=== PATIENT | female | born 1990 | race Caucasian/White ===

== ENCOUNTER 2016-08-06 01:50 | Emergency (ER) | payer MEDICAID ==
[~2016-08-06] VITALS: Ht 160 cm; Wt 50.3 kg
[2016-08-06] MEDS ORDERED: IBUPROFEN 200 MG TABLET PO ONE (02:30)
[2016-08-06] MEDS ORDERED: IBUPROFEN 200 MG TABLET ONE (02:35)
[2016-08-06 02:41] LABS: HEMOGLOBIN 14.3 g/dL (11.7-16.4)
[2016-08-06 02:57] LABS: BLOOD UREA NITROGEN 12 mg/dL (7-18)
[2016-08-06 03:32] VITALS: BP 100/58
== END 2016-08-06 03:56 | disposition home or self-care (01) ==
LOC: ED 03:10
DX: S69.91XA Unspecified injury of right wrist, hand and finger(s), initial encounter (principal); R05 Cough; W86.8XXA Exposure to other electric current, initial encounter; Y93.89 Activity, other specified; Y92.89 Other specified places as the place of occurrence of the external cause; Y99.8 Other external cause status
CPT/HCPCS: 36415; 71010; 80048; 82040; 84703; 85025; 93005

== ENCOUNTER 2016-11-03 02:51 | Emergency (ER) | payer MEDICAID ==
[~2016-11-03] VITALS: Ht 160 cm; Wt 51.8 kg
[2016-11-03 02:52] VITALS: BP 104/69
[2016-11-03] MEDS ORDERED: FLUCONAZOLE 100 MG TABLET PO ONE (04:00)
== END 2016-11-03 04:27 | disposition home or self-care (01) ==
LOC: ED 04:21
DX: B37.3 Candidiasis of vulva and vagina (principal)
CPT/HCPCS: 81003; 87210; 87491; 87591; 87808; 99284

== ENCOUNTER 2017-04-27 16:55 | Emergency (ER) | payer SELFPAY ==
[~2017-04-27] VITALS: Ht 160 cm; Wt 51.8 kg
[2017-04-27] MEDS ORDERED: ALBU2.5V11 NEB (17:38)
[2017-04-27 17:48] LABS: MICROSCOPIC NOT IND
[2017-04-27 17:48] LABS: BASOPHILS # (AUTO) 0.05 x10^3/uL (0-0.1); BASOPHILS % (AUTO) 1 % (0-1); EOSINOPHILS # (AUTO) 0.19 x10^3/uL (0-0.4); EOSINOPHILS % (AUTO) 2 % (1-7); LYMPHOCYTES # (AUTO) 2.06 x10^3/uL (1-3.4); LYMPHOCYTES % (AUTO) 22 % (22-44); MD NO; MEAN CORPUSCULAR HGB CONC 33.7 g/dL (32.4-35.8); MEAN CORPUSCULAR VOLUME 97.9 fL (80-100); MEAN PLATELET VOLUME 8.1 fL (7.4-10.4); MONOCYTES % (AUTO) 5 % (2-9); NEUTROPHILS # (AUTO) 6.42 x10^3/uL (1.8-6.8); NEUTROPHILS % (AUTO) 70 % (42-75); PLATELET COUNT 362 x10^3/uL (130-400); RED CELL DISTRIBUTION WIDTH 13.7 % (9.6-15.2)
[2017-04-27 17:49] LABS: CULTURE INDICATED? NO
[2017-04-27 17:58] LABS: ALBUMIN 4.4 g/dL (3.4-5.0); ANION GAP 9 mmol/L (5-15); CALCIUM 8.6 mg/dL (8.5-10.1); CHLORIDE 105 mmol/L (98-107)
[2017-04-27 18:04] LABS: ALANINE AMINOTRANSFERASE 15 U/L (12-78); ALKALINE PHOSPHATASE 61 U/L (45-117); BILIRUBIN,TOTAL 0.5 mg/dL (0.2-1.0); CREATININE 0.87 mg/dL (0.55-1.02); TOTAL PROTEIN 7.8 g/dL (6.4-8.2)
[2017-04-27 18:16] VITALS: BP 105/73
== END 2017-04-27 18:52 | disposition home or self-care (01) ==
LOC: ED 18:43
DX: R10.32 Left lower quadrant pain (principal); R10.31 Right lower quadrant pain; R10.2 Pelvic and perineal pain; R11.2 Nausea with vomiting, unspecified
CPT/HCPCS: 36415; 76830; 80053; 81003; 84703; 85025; 99285

== ENCOUNTER 2017-12-19 21:33 | Emergency (ER) | payer MEDICAID, OTHER ==
[~2017-12-19] VITALS: Ht 165.1 cm; Wt 50.0 kg
[~2017-12-19 21:33] MED LIST: ALBU2.5V11 NEB
[2017-12-19 21:43] VITALS: BP 137/83
== END 2017-12-19 22:50 ==
LOC: ED 21:50
DX: H57.8 Other specified disorders of eye and adnexa (principal); H53.8 Other visual disturbances; J45.909 Unspecified asthma, uncomplicated
CPT/HCPCS: 99283

== ENCOUNTER 2018-01-18 19:05 | Emergency (ER) | payer MEDICAID ==
[~2018-01-18] VITALS: Ht 165.1 cm; Wt 51.9 kg
[2018-01-18 23:31] VITALS: BP 130/70
== END 2018-01-18 23:33 | disposition home or self-care (01) ==
LOC: ED 19:35
DX: G43.C0 Periodic headache syndromes in child or adult, not intractable (principal); J45.909 Unspecified asthma, uncomplicated; Z88.0 Allergy status to penicillin
CPT/HCPCS: 70450; 99284

== ENCOUNTER 2018-02-25 03:10 | Emergency (ER) | payer MEDICAID ==
[~2018-02-25] VITALS: Ht 152.4 cm; Wt 52.1 kg
[2018-02-25 03:12] VITALS: BP 116/72
[2018-02-25 03:51] LABS: BASOPHILS # (AUTO) 0.03 x10^3/uL (0-0.1); BASOPHILS % (AUTO) 0 % (0-1); EOSINOPHILS % (AUTO) 4 % (1-7); LYMPHOCYTES # (AUTO) 2.05 x10^3/uL (1-3.4); LYMPHOCYTES % (AUTO) 26 % (22-44); MD NO; MEAN CORPUSCULAR HEMOGLOBIN 32.7 pg (27.0-34.8); MEAN CORPUSCULAR HGB CONC 34.5 g/dL (32.4-35.8); MEAN CORPUSCULAR VOLUME 94.8 fL (80-100); MEAN PLATELET VOLUME 7.9 fL (7.4-10.4); MONOCYTES # (AUTO) 0.46 x10^3/uL (0.2-0.8); MONOCYTES % (AUTO) 6 % (2-9); NEUTROPHILS # (AUTO) 5.02 x10^3/uL (1.8-6.8); NEUTROPHILS % (AUTO) 64 % (42-75); PLATELET COUNT 326 x10^3/uL (130-400); RED BLOOD COUNT 4.18 x10^6/uL (3.82-5.3); RED CELL DISTRIBUTION WIDTH 13.3 % (9.6-15.2)
[2018-02-25] MEDS ORDERED: ONDANSETRON 2MG/ML, 2ML IVPush ONE (04:00)
[2018-02-25] MEDS ORDERED: KETOROLAC 30 MG/1 ML IVPush ONE (04:00)
[2018-02-25] MEDS ORDERED: SODIUM CHLORIDE FLUSH 10ML SYR IVF ONE (04:00)
[2018-02-25 04:03] LABS: ALANINE AMINOTRANSFERASE 21 U/L (12-78); ALBUMIN 3.7 g/dL (3.4-5.0); ANION GAP 8 mmol/L (5-15); CALCIUM 8.4 mg/dL (8.5-10.1); CHLORIDE 113 mmol/L (98-107); CREATININE 0.91 mg/dL (0.55-1.02)
[2018-02-25 04:07] LABS: ALKALINE PHOSPHATASE 58 U/L (45-117); BILIRUBIN,TOTAL 0.3 mg/dL (0.2-1.0); TOTAL PROTEIN 6.5 g/dL (6.4-8.2)
[2018-02-25 04:13] LABS: T4 (THYROXINE) 7.6 mcg/dL (4.8-13.9)
== END 2018-02-25 04:53 | disposition home or self-care (01) ==
LOC: ED 03:23
DX: R00.2 Palpitations (principal); R19.7 Diarrhea, unspecified; Z72.9 Problem related to lifestyle, unspecified; F17.200 Nicotine dependence, unspecified, uncomplicated; Z88.0 Allergy status to penicillin
CPT/HCPCS: 36415; 80053; 84436; 84443; 84703; 85025; 93005; 99285

== ENCOUNTER 2018-05-18 20:22 | Emergency (ER) | payer MEDICAID ==
[~2018-05-18] VITALS: Ht 152.4 cm; Wt 51.9 kg
[2018-05-18 20:29] VITALS: BP 107/70
[2018-05-18] MEDS ORDERED: PROPARACAINE OPHTH 0.5%, 15ML ONE (20:58)
== END 2018-05-18 21:22 | disposition home or self-care (01) ==
LOC: ED 21:16
DX: H00.011 Hordeolum externum right upper eyelid (principal); Z88.0 Allergy status to penicillin
CPT/HCPCS: 99283

== ENCOUNTER 2018-05-22 22:40 | Emergency (ER) | payer MEDICAID ==
[~2018-05-22] VITALS: Ht 165.1 cm; Wt 51.3 kg
[2018-05-22 22:40] VITALS: BP 117/79
[2018-05-22] MEDS ORDERED: BUPIVACAINE 0.25% INFIL ONE (23:30)
[2018-05-22] MEDS ORDERED: LIDOCAINE 1%-EPI 1:100K, 20ML SQ ONE (23:30)
[2018-05-22] MEDS ORDERED: BUPIVACAINE 0.25% ONE (23:35)
[2018-05-22] MEDS ORDERED: LIDOCAINE 1%-EPI 1:100K, 20ML ONE (23:35)
== END 2018-05-23 00:12 | disposition home or self-care (01) ==
LOC: ED 23:09
DX: K08.89 Other specified disorders of teeth and supporting structures (principal); Z72.9 Problem related to lifestyle, unspecified; F17.210 Nicotine dependence, cigarettes, uncomplicated; J45.909 Unspecified asthma, uncomplicated
CPT/HCPCS: 64402; 99284

== ENCOUNTER 2018-09-13 16:38 | Emergency (ER) | payer MEDICAID ==
[~2018-09-13] VITALS: Ht 167.6 cm; Wt 51.9 kg
--- NOTE | 2018-09-13 16:50 | NUR ---
PT PRESENTING TO ER FOR N/V AND UMBILICAL ABD PAIN, URINARY FREQUENCY BUT NO PAIN. FRIENDAT BEDSIDE. MD AT BEDSIDE FOR ASSESSMENT, AWAITING FURTHER ORDERS AT THIS TIME. CALL LIGHT WITHIN REACH. PT ATTEMPTED UA BUT WAS UNSUCCESSFUL AT THIS TIME.
[2018-09-13] MEDS ORDERED: MAALOX/HYOSCYAMINE/LIDOCAINE 45 ML BTL PO ONE (17:00)
[2018-09-13] MEDS ORDERED: ONDANSETRON ODT 4 MG PO ONE (17:00)
[2018-09-13] MEDS ORDERED: MAALOX/HYOSCYAMINE/LIDOCAINE 45 ML BTL ONE (17:11)
[2018-09-13] MEDS ORDERED: ONDANSETRON ODT 4 MG ONE (17:11)
[2018-09-13 17:12] LABS: BASOPHILS # (AUTO) 0.07 x10^3/uL (0-0.1); BASOPHILS % (AUTO) 1 % (0-1); EOSINOPHILS # (AUTO) 0.34 x10^3/uL (0-0.4); EOSINOPHILS % (AUTO) 5 % (1-7); LYMPHOCYTES # (AUTO) 2.31 x10^3/uL (1-3.4); LYMPHOCYTES % (AUTO) 35 % (22-44); MD NO; MEAN CORPUSCULAR HEMOGLOBIN 32.8 pg (27.0-34.8); MEAN CORPUSCULAR HGB CONC 33.4 g/dL (32.4-35.8); MEAN CORPUSCULAR VOLUME 98.3 fL (80-100); MEAN PLATELET VOLUME 7.9 fL (7.4-10.4); MONOCYTES # (AUTO) 0.36 x10^3/uL (0.2-0.8); MONOCYTES % (AUTO) 6 % (2-9); NEUTROPHILS # (AUTO) 3.46 x10^3/uL (1.8-6.8); NEUTROPHILS % (AUTO) 53 % (42-75); PLATELET COUNT 347 x10^3/uL (130-400); RED BLOOD COUNT 4.12 x10^6/uL (3.82-5.3); RED CELL DISTRIBUTION WIDTH 13.8 % (9.6-15.2)
--- NOTE | 2018-09-13 17:14 | NUR ---
LABS COLLECTED. RAD COMPLETED. PT MEDCIATED WITH NAUSEA MEDS, GI COCKTAIL TO BE GIVEN IN 10 MINUTES
[2018-09-13 17:25] LABS: ALANINE AMINOTRANSFERASE 17 U/L (12-78); ALBUMIN 3.7 g/dL (3.4-5.0); ANION GAP 8 mmol/L (5-15); CALCIUM 8.5 mg/dL (8.5-10.1); CHLORIDE 114 mmol/L (98-107); CREATININE 0.86 mg/dL (0.55-1.02)
[2018-09-13 17:30] LABS: ALKALINE PHOSPHATASE 48 U/L (45-117); BILIRUBIN,TOTAL 0.1 mg/dL (0.2-1.0); TOTAL PROTEIN 6.4 g/dL (6.4-8.2)
--- NOTE | 2018-09-13 17:37 | NUR ---
PT UP TO RESTROOM TO ATTEMPT URINE COLLECTION AGAIN. PT STATES ABD FEELS BETTER AFTER MEDS GIVEN. VSS. CALL LIGHT WITHIN REACH. AWAITING UA RESULTS AND RECHECK
[2018-09-13 17:55] LABS: MICROSCOPIC NOT IND
[2018-09-13 17:59] LABS: CULTURE INDICATED? NO
--- NOTE | 2018-09-13 18:02 | NUR ---
ALL RESULTS BACK AT THIS TIME, CHART UP FOR RECHECK
--- NOTE | 2018-09-13 18:13 | NUR ---
MD TO BEDSIDE TO UPDATE PT AND FAMILY ON POC
[2018-09-13 18:34] VITALS: BP 106/75
== END 2018-09-13 18:36 | disposition home or self-care (01) ==
LOC: ED 18:29
DX: K29.00 Acute gastritis without bleeding (principal); R10.13 Epigastric pain; R10.33 Periumbilical pain; J45.909 Unspecified asthma, uncomplicated; F17.200 Nicotine dependence, unspecified, uncomplicated; Z72.9 Problem related to lifestyle, unspecified
CPT/HCPCS: 36415; 71045; 80053; 81003; 83690; 84703; 85025; 93005; 99284; Q0162

== ENCOUNTER 2019-11-24 22:47 | Emergency (ER) | payer MEDICAID ==
[~2019-11-24] VITALS: Ht 160 cm; Wt 51.4 kg
[2019-11-24 22:49] VITALS: BP 134/80
[2019-11-25 00:22] LABS: BASOPHILS # (AUTO) 0.03 x10^3/uL (0-0.1); BASOPHILS % (AUTO) 0 % (0-1); EOSINOPHILS # (AUTO) 0.32 x10^3/uL (0-0.4); EOSINOPHILS % (AUTO) 4 % (1-7); LYMPHOCYTES # (AUTO) 2.55 x10^3/uL (1-3.4); LYMPHOCYTES % (AUTO) 32 % (22-44); MD NO; MEAN CORPUSCULAR HEMOGLOBIN 31.4 pg (27.0-34.8); MEAN CORPUSCULAR HGB CONC 33.6 g/dL (32.4-35.8); MEAN CORPUSCULAR VOLUME 93.4 fL (80-100); MEAN PLATELET VOLUME 8.1 fL (7.4-10.4); MONOCYTES # (AUTO) 0.51 x10^3/uL (0.2-0.8); MONOCYTES % (AUTO) 6 % (2-9); NEUTROPHILS # (AUTO) 4.64 x10^3/uL (1.8-6.8); NEUTROPHILS % (AUTO) 58 % (42-75); PLATELET COUNT 361 x10^3/uL (130-400); RED CELL DISTRIBUTION WIDTH 13.6 % (9.6-15.2)
[2019-11-25 00:30] LABS: ALANINE AMINOTRANSFERASE 27 U/L (12-78); ALBUMIN 3.6 g/dL (3.4-5.0); ANION GAP 7 mmol/L (5-15); CALCIUM 8.5 mg/dL (8.5-10.1); CHLORIDE 109 mmol/L (98-107)
[2019-11-25 00:35] LABS: ALKALINE PHOSPHATASE 52 U/L (45-117); BILIRUBIN,TOTAL 0.3 mg/dL (0.2-1.0); CREATININE 0.85 mg/dL (0.55-1.02); TROPONIN I < 0.015 ng/mL (0.000-0.045)
== END 2019-11-25 01:39 | disposition home or self-care (01) ==
LOC: ED 11-25 01:00
DX: R07.89 Other chest pain (principal); R00.0 Tachycardia, unspecified; R06.02 Shortness of breath; R11.2 Nausea with vomiting, unspecified; F17.210 Nicotine dependence, cigarettes, uncomplicated
CPT/HCPCS: 36415; 71046; 80053; 84484; 85025; 93005; 94640; 99285; 99406

== ENCOUNTER 2020-04-30 23:16 | Emergency (ER) | payer MEDICAID ==
[~2020-04-30] VITALS: Ht 165.1 cm; Wt 54.1 kg
[2020-04-30 23:19] VITALS: BP 120/73
[2020-04-30] MEDS ORDERED: HYDROcodone/APAP 5/325 TABLET ONE (23:51)
[2020-05-01] MEDS ORDERED: HYDROcodone/APAP 5/325 TABLET PO ONE
== END 2020-05-01 00:31 | disposition home or self-care (01) ==
LOC: ED 23:46
DX: K02.9 Dental caries, unspecified (principal); E05.90 Thyrotoxicosis, unspecified without thyrotoxic crisis or storm
CPT/HCPCS: 99283

== ENCOUNTER 2020-08-01 00:21 | Emergency (ER) | payer MEDICAID ==
[~2020-08-01] VITALS: Ht 162.6 cm; Wt 53.0 kg
[2020-08-01 00:22] VITALS: BP 111/82
--- NOTE | 2020-08-01 01:48 | NUR ---
Patient/Caregiver given discharge instructions and they have confirmed that they understand the instructions. Patient ambulatory with steady gait. Rx reviewed with patient.
== END 2020-08-01 01:49 | disposition home or self-care (01) ==
LOC: ED 00:34
DX: L04.9 Acute lymphadenitis, unspecified (principal); K08.89 Other specified disorders of teeth and supporting structures; E03.9 Hypothyroidism, unspecified; J45.909 Unspecified asthma, uncomplicated; F17.210 Nicotine dependence, cigarettes, uncomplicated; Z88.0 Allergy status to penicillin
CPT/HCPCS: 99283; 99406

== ENCOUNTER 2020-11-15 23:47 | Emergency (ER) | payer MEDICAID ==
[~2020-11-15] VITALS: Ht 165.1 cm; Wt 47.9 kg
[2020-11-15 23:49] VITALS: BP 109/64
[2020-11-16 01:48] LABS: MICROSCOPIC NOT IND
== END 2020-11-16 02:02 | disposition home or self-care (01) ==
LOC: ED 11-16 00:34
DX: B34.9 Viral infection, unspecified (principal); Z20.822 Contact with and (suspected) exposure to COVID-19; E03.9 Hypothyroidism, unspecified; J45.909 Unspecified asthma, uncomplicated
CPT/HCPCS: 81003; 99283; U0003; U0005